=== PATIENT | male | born 1980 | race Caucasian/White ===

== ENCOUNTER 2021-03-22 16:18 | Emergency (ER) | payer OTHER, SELFPAY ==
--- NOTE | ~2021-03-22 | XR_ITS ---
XR chest 2V DATE: 03/22/2021 16:53 INDICATION: Left-sided chest pain, pressure. TECHNIQUE: PA and lateral views COMPARISON: None FINDINGS: Normal heart size. No hilar or mediastinal enlargement. No pulmonary infiltrate or consolid ation, pleural effusion or pulmonary vascular congestion or pneumothorax. Minimal dextroscoliosis of the thoracolumbar spine. IMPRESSION: No active cardiopulmonary disease Reviewed, dictated and finalized at location B.
[2021-03-22 16:29] VITALS: BP 170/102; PULSE 76; RESP 18; O2SAT 100
--- NOTE | 2021-03-22 16:35 | ECG_ITS ---
Measurements Intervals Otto Rate: 71 P: 21 DC: 174 QRS: -9 QRSD: 97 T: 3 QT: 399 QTc: 434 Interpretive Statements SINUS RHYTHM VENTRICULAR PREMATURE COMPLEXES BORDERLINE T WAVE ABNORMALITY- INFERIOR LEADS BASELINE ARTIFACT- I, II, III, AVR, AVL, AVF, V1-V6 BORDERLINE ECG Electronically Signed On 03-22-2021 16:40:00 CDT by Rodriguez Yanes D.O.
[2021-03-22 16:45] LABS: Basophils Percent Auto 0.5 % (0.2-1.2); Eosinophils Absolute Auto 0.4 K/mm3 (0-0.3); Eosinophils Percent Auto 5.4 % (0-4.4); Hemoglobin 15.2 g/dL (14.0-18.0); Immature Granulocyte Absolute 0.02 K/mm3 (0.00-0.031); Immature Granulocyte Percent A 0.3 % (0-0.5); Lymphocytes Absolute Auto 2.29 K/mm3 (0.9-3.2); Lymphocytes Percent Auto 31.5 % (18.3-44.2); Mean Corpuscular HGB Conc 34.5 g/dl (32-36); Mean Corpuscular Hemoglobin 31.5 pg (26-34); Mean Corpuscular Volume 91.3 fl (80-100); Mean Platelet Volume 10.2 fl (7.4-10.4); Monocytes Absolute Auto 0.5 K/mm3 (0.1-0.6); Monocytes Percent Auto 6.2 % (2.6-8.5); Neutrophils Absolute Auto 4.1 K/mm3 (1.3-6.7); Neutrophils Percent Auto 56.1 % (45.5-73.1); Platelet Count Result 183 k/mm3 (150-375); Red Blood Count 4.82 M/mm3 (4.6-6.20); White Blood Count 7.3 K/mm3 (4.5-10.0)
[2021-03-22 16:54] LABS: Prothrombin Time 13.7 Seconds (11.1-14.7)
[2021-03-22 16:55] LABS: Partial Thromboplastin Time 27.4 SECONDS (22.3-36.8)
[2021-03-22 16:57] LABS: Anion Gap 7 mmol/L (8-16); Blood Urea Nitrogen 19 mg/dL (9-20); Calcium 9.4 mg/dL (8.4-10.2); Carbon Dioxide 26 mmol/L (22-30); Chloride 107 mmol/L (98-107); Estimated CRCL calculation 121 ml/min; Estimated Glomerular Filt Rate > 60; Glucose 94 mg/dL (75-110); Potassium 3.9 mmol/L (3.4-5.0); Sodium 140 mmol/L (137-145)
[2021-03-22 17:09] LABS: Troponin I < 0.012 ng/mL (0.000-0.034)
[2021-03-22 17:17] VITALS: BP 135/81; PULSE 78; RESP 16; O2SAT 98
[2021-03-22] MEDS: ASPIRIN 81 MG CHEWABLE TABLET 324 MG PO (17:17)
--- NOTE | 2021-03-22 17:42 | ED.CHESTPAIN ---
HPI - Chest Pain General Chief Complaint: Chest Pain Stated Complaint: Chest Pain Time Seen by Provider: 03/22/21 17:01 Source: patient Mode of arrival: ambulatory Limitations: no limitations History of Present Illness HPI narrative: This is a 41-year-old male that presents to the emergency department for intermittent chest pain over the last couple of weeks. Reports the pain feels like a pressure and lasts only seconds. No known exacerbating factors. It is on the left side of his chest. Reports he has also been having some intermittent tingling of his feet and hands. He called his primary who prompted him to come to the ER to be seen. Denies any current chest pain. Denies fever, cough, shortness of breath, vomiting, numbness, or weakness. Related Data Home Medications Medication Instructions Recorded Confirmed No Home Medications 03/22/21 03/22/21 Allergies Allergy/AdvReac Type Severity Reaction Status Date / Time No Known Allergies Allergy Verified 03/22/21 16:34 Review of Systems Review of Systems: Narrative: CONSTITUTIONAL: Denies fever CARDIOVASCULAR: Reports chest pain RESPIRATORY: Denies cough or dyspnea. GASTROINTESTINAL: Denies vomiting NEUROLOGIC: Denies numbness, or weakness. All systems reviewed & are unremarkable except as noted in HPI and below PMFSH Past Medical History Medical History (Updated 03/22/21 @ 20:42 by Shellie Quintero PA-C) No active medical problems Social History Social History (Updated 03/22/21 @ 17:44 by Shellie Quintero PA-C) Smoking status: Never smoker Exam Narrative: Exam Narrative: GENERAL: Well-appearing, well-nourished, and in no acute distress. HEAD: Normocephalic, atraumatic. EYES: EOMI. ENT: Mucous membranes moist. Oropharynx without tonsillar hypertrophy exudate or other lesions. NECK: Supple. No adenopathy or masses. No carotid bruits or JVD CHEST: Clear to auscultation. No respiratory distress. No wheezes rales or rhonchi HEART: Regular rate and rhythm. No murmur heard. Normal peripheral pulses. EXTREMITIES: Normal range of motion. No edema. Strength equal in bilateral lower extremities (5/5) SKIN: Warm, dry, no rash. NEURO: No focal deficits. Alert and oriented x3. PSYCH: Normal mood and affect Course Consultations Consultation #1: Spoke with Dr. Colón about patient and work-up will follow-up in clinic. Date: 03/22/21 Time: 20:42 Vital Signs Vital signs: Vital Signs Pulse Rate 76 03/22/21 16:29 Respiratory Rate 18 03/22/21 16:29 Blood Pressure 170/102 H 03/22/21 16:29 Pulse Oximetry 100 03/22/21 16:29 Pulse Rate 52 L 03/22/21 19:19 Respiratory Rate 18 03/22/21 19:19 Blood Pressure 131/80 03/22/21 19:19 Pulse Oximetry 98 03/22/21 19:19 MDM - Chest Pain MDM Narrative Medical decision making narrative: Patient presents the emergency department for intermittent episodes of chest pain over the last couple of weeks. Pain is not exertional in nature. It lasts very briefly. Blood pressure elevated on arrival, this down trended on its own. Most recent blood pressure 131/80. CBC and metabolic panel without concerning findings. EKG without concerning changes and baseline 3-hour troponin are negative. Chest x-ray is without acute cardiopulmonary abnormalities. Patient's heart score is a 2. He denies any current chest pain. Spoke with Dr. Colón about patient and work-up will follow-up in clinic. Patient is stable and felt appropriate for further outpatient evaluation. He was given warnings to return to the ER Lab Data Attestation: I reviewed the patient's lab results. Result diagrams: 03/22/21 16:40 03/22/21 16:40 Labs: Lab Results 03/22/21 03/22/21 03/22/21 Range/Units 16:40 16:40 16:40 WBC 7.3 (4.5-10.0) K/mm3 RBC 4.82 (4.6-6.20) M/mm3 Hgb 15.2 (14.0-18.0) g/dL Hct 44.0 (42.0-52.0) % MCV 91.3 (80-100) fl MCH 31.5 (26-34) pg MCHC 34.5
[2021-03-22 18:19] VITALS: BP 122/83; PULSE 73; RESP 18; O2SAT 98
[2021-03-22 19:19] VITALS: BP 131/80; PULSE 52; RESP 18; O2SAT 98
[2021-03-22 19:49] LABS: Troponin I < 0.012 ng/mL (0.000-0.034)
[2021-03-22 20:52] VITALS: BP 122/80; PULSE 70; RESP 22; O2SAT 99
== END 2021-03-22 20:53 | disposition home or self-care (01) ==
PROVIDERS: Emergency Provider Emergency Medicine; PCP Family Medicine
DX: R07.89 Other chest pain (principal); I49.3 Ventricular premature depolarization
CPT/HCPCS: 36415; 71046; 80048; 84484; 85025; 85610; 85730; 93005; 99284; A9270